=== PATIENT | male | born 1985 | race Two or more races ===

== ENCOUNTER 2021-01-18 17:22 | Emergency (ER) | payer SELFPAY ==
[~2021-01-18] VITALS: Ht 177.8 cm; Wt 60.0 kg
[2021-01-18] MEDS ORDERED: LORazepam 2 MG/ML, 1ML ONE (17:29)
[2021-01-18] MEDS ORDERED: ONDANSETRON 2MG/ML, 2ML ONE (17:29)
[2021-01-18] MEDS ORDERED: LORazepam 2 MG/ML, 1ML IVPush ONE (17:30)
[2021-01-18] MEDS ORDERED: ONDANSETRON 2MG/ML, 2ML IVPush ONE (17:30)
[2021-01-18] MEDS ORDERED: SODIUM CHLORIDE FLUSH 10ML SYR IVF ONE (17:30)
[2021-01-18 17:42] LABS: BASOPHILS % (AUTO) 1 % (0-1); EOSINOPHILS % (AUTO) 1 % (1-7); LYMPHOCYTES % (AUTO) 31 % (22-44); MEAN CORPUSCULAR HGB CONC 32.8 g/dL (33.2-36.2); MEAN PLATELET VOLUME 8.6 fL (7.4-10.4); MONOCYTES % (AUTO) 4 % (2-9); NEUTROPHILS % (AUTO) 64 % (42-75); PLATELET COUNT 248 x10^3/uL (130-400); RED BLOOD COUNT 5.07 x10^6/uL (4.38-5.82); RED CELL DISTRIBUTION WIDTH 12.9 % (9.4-14.8)
[2021-01-18 17:47] LABS: MD NO
[2021-01-18 17:53] LABS: ALANINE AMINOTRANSFERASE 26 U/L (12-78); ALBUMIN 4.7 g/dL (3.4-5.0); ANION GAP 18 mmol/L (5-15); CHLORIDE 107 mmol/L (98-107); CREATININE 1.33 mg/dL (0.7-1.3)
[2021-01-18 17:56] LABS: ALKALINE PHOSPHATASE 98 U/L (45-117); BILIRUBIN,TOTAL 0.3 mg/dL (0.2-1.0); TOTAL PROTEIN 8.9 g/dL (6.4-8.2)
[2021-01-18] MEDS ORDERED: PLEASE ENTER ALLERGIES MC SCH (18:00)
--- NOTE | 2021-01-18 18:42 | NUR ---
QAMAR AFTER HAVING WITNESSED SIEZURE LASTING 2 MINS AT WORK. PT DENIES HX AND HEAD TRAUMA. PT ATTACHED TO ALL MONITORS. VSS. PT CONFUSED TO SITUATION AND HAS C/O NAUSEA AND DIZZINESS. DR. YA EVALUATED. PT'S BOSS [employer] CALLED FOR UPDATE. PER PT OKAY TO GIVE INFORMATION. [employer]'S NUMBER [phone]. PT REQUESTED MOTHER SEAN TO BE CONTACTED NUMBER [phone]. MESSAGE LEFT FOR MOTHER.
--- NOTE | 2021-01-18 19:06 | NUR ---
pt asleep with even and unlabored respirations. vss. filomenan
[2021-01-18 19:12] LABS: AMPHETAMINE SCREEN, URINE Negative (Negative); BARBITURATE SCREEN, URINE Negative (Negative); BENZODIAZEPINE SCREEN, URINE Negative (Negative); CANNABINOID SCREEN, URINE Positive (Negative); COCAINE SCREEN, URINE Negative (Negative); METHADONE SCREEN, URINE Negative (Negative); OPIATE SCREEN, URINE Negative (Negative)
[2021-01-18 19:39] VITALS: BP 125/84
--- NOTE | 2021-01-18 19:39 | NUR ---
TASK RN: PT RESTING ON GURNEY. NADN. SWEET.
--- NOTE | 2021-01-18 19:59 | NUR ---
Patient given discharge instructions and they have confirmed that they understand the instructions. Patient ambulatory with steady gait. Patient given jean durán
== END 2021-01-18 20:00 | disposition home or self-care (01) ==
LOC: ED 19:15
DX: R56.9 Unspecified convulsions (principal); R55 Syncope and collapse; R51.9 Headache, unspecified
CPT/HCPCS: 36415; 70450; 80053; 80307; 85025; 96374; 96375; 99284; J2060; J2405